=== PATIENT | female | born 1990 | race Caucasian/White ===

== ENCOUNTER 2017-02-08 07:35 | Emergency (ER) | payer MEDICAID ==
[2017-02-08 08:07] VITALS: BP 114/83
--- NOTE | 2017-02-08 08:19 | EDM.PDOC ---
ED HPI GENERAL MEDICAL PROBLEM - General Chief Complaint: Skin Complaint Stated Complaint: ALLERGIC REACTION? Time Seen by Provider: 02/08/17 07:50 Source of Information: Reports: Patient History Limitations: Reports: No Limitations - History of Present Illness INITIAL COMMENTS - FREE TEXT/NARRATIVE: pt arrived with a rash on her face. She had used a facial mask ans she thinks it burned the area. She states this burning quite bad at this juan. Onset: Other ( started last nite fter she used the facial mask. ) Duration: Hour(s):, Getting Worse Location: Reports: Face Associated Symptoms: Reports: No Other Symptoms Face Pain Score (Numeric/FACES): 4 - Related Data Allergies Allergy/AdvReac Type Severity Reaction Status Date / Time No Known Allergies Allergy Verified 02/08/17 07:43 Home Meds: Home Meds NK [No Known Home Meds] 02/08/17 [History] Past Medical History [employer] History: Reports: , Therapeutic Musculoskeletal History: Reports: Fracture Psychiatric History: Reports: Anxiety, Depression, Suicide Attempt - Infectious Disease History Infectious Disease History: Reports: Chicken Pox Social & Family History - Tobacco Use Smoking Status *Q: Current Every Day Smoker Years of Tobacco use: 5 Packs/Tins Daily: 0.5 Used Tobacco, but Quit: No Second Hand Smoke Exposure: Yes - Caffeine Use Caffeine Use: Reports: Coffee - Alcohol Use Days Per Week of Alcohol Use: 6 Number of Drinks Per Day: 3 Total Drinks Per Week: 18 - Recreational Drug Use Recreational Drug Use: No Recreational Drug Type: Reports: Marijuana/Hashish Recreational Drug Use Frequency: Daily ED ROS GENERAL - Review of Systems Review Of Systems: See Below Constitutional: Reports: No Symptoms HEENT: Reports: Other (pt has multiple lesions on her face that look like trotter. , ) Respiratory: Reports: No Symptoms Cardiovascular: Reports: No Symptoms Endocrine: Reports: No Symptoms GI/Abdominal: Reports: No Symptoms : Reports: No Symptoms Skin: Reports: Other (pt has a facial rash with multiple lesions on her face. ) Neurological: Reports: No Symptoms ED EXAM, SKIN/RASH Exam: See Below Text/Narrative:: Pt arrived with a facial rash. These look like trotter. she had used a facial mask and she thinks it did burn her. Exam Limited By: No Limitations General Appearance: Alert, Anxious Ears: Normal TMs Nose: Normal Inspection Throat/Mouth: Normal Inspection Head: Atraumatic Neck: Normal Inspection Respiratory/Chest: No Respiratory Distress Cardiovascular: Regular Rate, Rhythm GI/Abdominal: Soft, Non-Tender Rectal (Female) Exam: Deferred Back Exam: Normal Inspection Extremities: Normal Inspection Neurological: Alert, Oriented, Normal Cognition Skin: Erythema, Other (the lesion do look like burn type lesions. ) Location, Skin: Face, Other (lesions do look like burn type lesioins. ) Course - Vital Signs Last Recorded V/S: Last Vital Signs Temp 36 C 02/08/17 07:48 Pulse 84 02/08/17 07:48 Resp 16 02/08/17 07:48 BP 114/83 02/08/17 07:48 Pulse Ox 98 02/08/17 07:48 Departure - Departure Time of Disposition: 08:16 Disposition: Home, Self-Care 01 Condition: Fair Clinical Impression: Allergic reaction - Discharge Information Referrals: PCP,None [Primary Care Provider] - Forms: ED Department Discharge Care Plan Goals: avoid use of makeup and other facial products. cool pack the face with moist packs tid, apply kenalog cream to the area tid for no longer than 5 days. Keflex 500mg tid for 10 days. No work for the next 2 days.
== END 2017-02-08 08:40 | disposition home or self-care (01) ==
LOC: JP.ED 07:35
DX: L23.2 Allergic contact dermatitis due to cosmetics (principal); T49.8X5A Adverse effect of other topical agents, initial encounter; F17.210 Nicotine dependence, cigarettes, uncomplicated
CPT/HCPCS: 99283